=== PATIENT | female | born 1975 | race Caucasian/White ===

== ENCOUNTER 2019-07-19 10:45 | Outpatient (CLI) | payer OTHER, SELFPAY ==
--- NOTE | ~2019-07-19 | US_ITS ---
EXAMINATION: US thyroid DATE: 07/19/2019 11:14 INDICATION: Nontoxic single thyroid nodule. TECHNIQUE: Multiple ultrasound images of the thyroid were obtained. COMPARISON: Ultrasound 12/11/2017, 07/13/2013 FINDINGS: The right thyroid lobe measures 4.3 x 0.9 x 2.0 cm. The left thyroid lobe measures 4.6 x 2.3 x 2.2 c m. In the left thyroid lobe, there is a 3.1 cm mixed solid and cystic, hypoechoic, rgrwm-zkhx-rxoe n odule with smooth margin and punctate echogenic foci (TI-RADS TR4) that yielded benign pathology at f ine-needle aspiration on 02/01/2015, stable from 07/13/13. In the left thyroid lobe, there is an 8 mm solid, very hypoechoic, bopnr-sevh-rwez nodule with smooth margin without echogenic foci (TR4). In th e right thyroid lobe, there is a 9 mm solid, hypoechoic, qzbtl-fzfc-rqip nodule with smooth margin wi thout echogenic foci (TR4). In the right thyroid lobe, there is an 11 mm solid, hypoechoic, wider-martell n-tall nodule with ill-defined margin without echogenic foci (TR4) that yielded benign pathology at f ine needle aspiration on 02/01/15, stable from 07/13/13. IMPRESSION: 1. Stable multinodular goiter, likely not clinically significant. No follow-up is needed. Reviewed, dictated and finalized at location A.
== END 2019-07-19 10:46 | disposition home or self-care (01) ==
PROVIDERS: PCP Internal Medicine; Visit Provider Internal Medicine Endocrinology, Diabetes & Metabolism
DX: E04.2 Nontoxic multinodular goiter (principal); R79.89 Other specified abnormal findings of blood chemistry
CPT/HCPCS: 76536

== ENCOUNTER → 2019-08-30 12:05 | Outpatient (CLI) | payer OTHER, SELFPAY ==
--- NOTE | ~2019-08-30 | MM_ITS ---
EXAMINATION: MM screening [facility] BI w david HISTORY: Screening mammogram TECHNIQUE: Craniocaudal and mediolateral oblique 3-D tomosynthesis images were obtained and synthetic 2-D images were generated. CAD analysis was submitted and interpreted. COMPARISON: 07/27/2018, 07/21/2017, 06/06/2015 BREAST PARENCHYMAL COMPOSITION: The breasts are heterogeneously dense, which may obscure small masses . FINDINGS: RIGHT BREAST: There is no evidence of suspicious mass, calcification, or architectural distortion to suggest malignancy. There has been no significant interval change. LEFT BREAST: An asymmetry is present in the subareolar aspect of the slightly outer breast on the x ray examiner of aircraft niocaudal view. IMPRESSION: 1. Left breast asymmetry on the craniocaudal view. 2. Additional mammographic views and possible breast ultrasound are recommended. BI-RADS Category 0: Incomplete: Needs additional imaging evaluation. Reviewed, dictated and finalized at location A. IMPRESSION: 1. Left breast asymmetry on the craniocaudal view. 2. Additional mammographic views and possible breast ultrasound are recommended . BI-RADS Category 0: Incomplete: Needs additional imaging evaluation.
== END ==
PROVIDERS: Visit Provider Nurse Practitioner
DX: Z12.31 Encounter for screening mammogram for malignant neoplasm of breast (principal); R92.8 Other abnormal and inconclusive findings on diagnostic imaging of breast
CPT/HCPCS: 77063; 77067

== ENCOUNTER 2019-09-10 07:53 | Outpatient (CLI) | payer OTHER, SELFPAY ==
--- NOTE | ~2019-09-10 | MMUS_ITS ---
EXAMINATION: MM diagnostic mammo unilat LT, US breast LT limited HISTORY: Follow-up left breast asymmetry TECHNIQUE: Additional 3-D tomosynthesis images of the left breast were performed and synthetic 2-D im ages were generated. CAD analysis was submitted and interpreted. High resolution left breast ultrasou nd was performed. COMPARISON: Comparison to multiple prior studies sequentially, with oldest reviewed study dated 06/05. BREAST PARENCHYMAL COMPOSITION: The breasts are heterogenously dense, which may obscure small masses FINDINGS: MAMMOGRAPHIC FINDINGS: There is persistent asymmetry in the subareolar location of the left breast on CC view. No suspicious calcifications or architectural distortion. ULTRASOUND: Left breast ultrasound: In the periareolar location of the left breast there is a 9 mm cyst corresponding to the abnormality seen on mammogram. No suspicious masses to suggest malignancy. IMPRESSION: 1. No mammographic or sonographic evidence for malignancy in the left breast. 2. Routine yearly screening mammogram and regular clinical breast examination are recommended. BI-RADS Category 1: Negative Reviewed, dictated and finalized at location A. IMPRESSION: 1. No mammographic or sonographic evidence for malignancy in the left breast. 2. Routine yearly screening mammogram and regular clinical breast examination a re recommended. BI-RADS Category 1: Negative
== END 2019-09-10 07:54 ==
PROVIDERS: Visit Provider Obstetrics & Gynecology Gynecology
DX: R92.8 Other abnormal and inconclusive findings on diagnostic imaging of breast (principal)
CPT/HCPCS: 76642; 77065

== ENCOUNTER → 2020-09-25 07:30 | Outpatient (CLI) | payer OTHER, SELFPAY ==
--- NOTE | ~2020-09-25 | MM_ITS ---
EXAMINATION: MM screening [facility] BI w david HISTORY: Screening TECHNIQUE: Craniocaudal and mediolateral oblique 3-D tomosynthesis images were obtained and synthetic 2-D images were generated. CAD analysis was submitted and interpreted. COMPARISON: Comparison to multiple prior studies sequentially, with oldest reviewed study dated 06/05. BREAST PARENCHYMAL COMPOSITION: The breasts are heterogeneously dense, which may obscure small masses . FINDINGS: There is no evidence of suspicious mass, calcification, or architectural distortion to sugg est malignancy in either breast. There has been no suspicious interval change. IMPRESSION: 1. No mammographic evidence of malignancy. 2. Recommend routine screening mammography in one year. BI-RADS Category 1: Negative Reviewed, dictated and finalized at location A.
== END ==
PROVIDERS: Visit Provider Nurse Practitioner
DX: Z12.31 Encounter for screening mammogram for malignant neoplasm of breast (principal)
CPT/HCPCS: 77063; 77067

== ENCOUNTER 2020-12-04 03:02 | Day surgery (SDC) | payer OTHER, SELFPAY ==
[2020-11-27 10:32] VITALS: BMI 29.7
[2020-12-04] VITALS (12 sets, daily range): BP systolic 110–147; BP diastolic 50–82; PULSE 70–97; RESP 15–24; TEMP 36.7–36.8; O2SAT 75–100; BMI 29.9
--- NOTE | 2020-12-04 06:37 | P.PNAN_ITS ---
Anes - Initial Pre Proc Eval Procedure: Operation Date: 12/04/20 07:30 Proposed Procedures p Hysteroscopy with Adrianne Endometrial Ablation - Keira Goldman MD s Laparoscopic Bilateral Tubal Sterilization with Fallopian Rings - Keira Goldman MD Date/Time: 12/04/20 06:37 Surgeon: Keira Goldman MD Pre Op Diagnosis: menorrhaghia, elective sterilization Patient Data Age: 45 Gender: F Height: 1.6 m Weight: 76.8 kg Last Vital Signs Temp 36.7 C 12/04/20 06:27 Pulse 79 12/04/20 06:27 Resp 16 12/04/20 06:27 BP 110/50 L 12/04/20 06:27 Pulse Ox 98 12/04/20 06:27 Allergies Allergy/AdvReac Type Severity Reaction Status Date / Time No Known Allergies Allergy Verified 12/04/20 06:17 Home Medications Medication Instructions Recorded Confirmed Type ascorbate calcium (vitamin C) 500 500 mg PO DAILY 11/13/20 12/04/20 History mg tablet cholecalciferol (vitamin D3) 1,250 1,250 mcg PO WEEKLY 11/13/20 12/04/20 History mcg (50,000 unit) capsule Patient hx anesthesia problems: none Family hx anesthesia problems: none Results Review: All pre-operative results and documents have been reviewed as part of the pre-operative evaluation. [facility] Past Medical History Medical History Acquired hypothyroidism Allergies Herniated disc Thyroid nodule Surgical History Surgical History Delivery by section x2 2004 2008 Family History Family History Mother Patient's mother is in good health Father Kidney tumor TIA (transient ischemic attack) Hypertension Other Cerebrovascular accident Family history of migraine headaches Social History Social History Smoking status: Never smoker Second hand tobacco smoke exposure: No Alcohol intake: current Drinks per week: 7 Alcohol use details: BEER Substance use: never Substance use type: does not use Living arrangements: with family Additional living arrangements comments: , 2 kids and mother in law 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 Informed Consent: The patient's anesthetic plan and its attendant risks and benefits were discussed with the patient/family/POA. Questions were solicited and answers provided to the satisfaction of the patient/family/POA.
[2020-12-04] MEDS: LACTATED RINGERS 1,000 ML 30 ML IV CONT ×2 (06:47→08:19)
[2020-12-04] MEDS: KETOROLAC 15 MG/ML VIAL (*BKC) IV PUSH (06:48)
--- NOTE | 2020-12-04 07:14 | WPDHPUPDATE1 ---
History and Physical Update Update Date/Time: 12/04/20 07:14 History and Physical has been reviewed, including an updated exam of the patient. There are NO changes in the patient's condition. Risks, benefits, and alternatives have been discussed and questions answered. Patient agrees to proceed with procedure.
--- NOTE | 2020-12-04 07:14 | PM.HPGS ---
History of Present Illness History of Present Illness Consent: Risks, benefits, and alternatives have been discussed and questions answered. Patient agrees to proceed with procedure. Chief complaint: menorrhaghia, elective sterilization Narrative: Lola Burton is a 45 year old female with menorrhagia. She had hysteroscopy with polypectomy 2018 with improvement. Recent onset of heavy cycles again with clotting. EMB benign without polyps. Options reviewed and patient has decided to proceed with endometrial ablation. In addition, plan laparoscopic BTL for sterilization. Risks of infection, bleeding, uterine perforation, injury to internal organs (bowel, bladder, ureters, etc. reviewed), DVT, and general anesthesia reviewed. Agrees to proceed. Review of Systems Review of Systems: not repeated day of surgery; patient states no changes in status [facility] Past Medical History Medical History (Updated 12/04/20 @ 07:20 by Keria Goldman MD) Acquired hypothyroidism Allergies Herniated disc Thyroid nodule Surgical History Surgical History (Updated 12/04/20 @ 07:19 by Keira Goldman MD) Delivery by section x2 2004 2008 History of hysteroscopy Family History Family History Mother Patient's mother is in good health Father Kidney tumor TIA (transient ischemic attack) Hypertension Other Cerebrovascular accident Family history of migraine headaches Social History Social History Smoking status: Never smoker Second hand tobacco smoke exposure: No Alcohol intake: current Drinks per week: 7 Alcohol use details: BEER Substance use: never Substance use type: does not use Living arrangements: with family Additional living arrangements comments: , 2 kids and mother in law 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 Gender identity (if verbalized by the patient): Female Spiritual care concerns: No Meds Home Medications and Allergies Home Medications Medication Instructions Recorded Confirmed Type ascorbate calcium (vitamin C) 500 500 mg PO DAILY 11/13/20 12/04/20 History mg tablet cholecalciferol (vitamin D3) 1,250 1,250 mcg PO WEEKLY 11/13/20 12/04/20 History mcg (50,000 unit) capsule Allergies Allergy/AdvReac Type Severity Reaction Status Date / Time No Known Allergies Allergy Verified 12/04/20 06:17 Vital Signs Vital Signs - 24 hr 10/18/21 06:27 Temperature 98.1 F Pulse Rate 79 Respiratory Rate 16 Blood Pressure 110/50 L Pulse Oximetry 98 Exam Const: General: healthy appearing and alert Orientation/consciousness: patient oriented x3 Resp: Effort & Inspection: normal respiratory effort Auscultation: clear to auscultation bilaterally Cardio: Rate: regular rate Rhythm: regular rhythm GI: GI Palp: Yes Soft to palpation, No Tenderness to palpation present (GI) and No Palpable mass present : External Female Exam: normal external appearance Speculum Exam - Vagina: normal appearance of the vagina and normal vaginal discharge Speculum Exam - Cervix: normal appearance of the cervix Bimanual exam- vagina & uterus: uterine size normal and consistency normal Bimanual Exam- Adnexa, other: normal adnexae and No adnexal tenderness Neuro: General: patient oriented x3 Assessment and Plan Assessment and plan (1) Menorrhagia: Code(s): N92.0 - Excessive and frequent menstruation with regular cycle Status: Acute Assessment and Plan: plan is to proceed with hysteroscopy with endometrial ablation with Adrianne device (2) Encounter for sterilization: Code(s): Z30.2 - Encounter for sterilization Status: Acute Assessment and Plan: plan laparoscopic BTL with falope rings
--- NOTE | 2020-12-04 08:14 | P.OP_ITS ---
Procedure Note - Detailed Date of Procedure 12/04/20 Pre-op Diagnosis menorrhaghia, elective sterilization Post-op Diagnosis same Procedure Performed Endometrial ablation with Adrianne device; hysteroscopy; laparoscopic bilateral tubal ligation (right tube with Falope ring, left tube with bipolar cautery) Surgeon Keira Goldman MD Anesthesia general Findings The internal os is stenotic. The uterus sounds to 10cm and appears grossly normal. The tubes and ovaries appear grossly normal except for the left tube appears edematous in its distal half. There is a pedunculated fibroid approximately 2x3cm at the right fundus. Description of Procedure The patient was taken to the operating room and placed under anesthesia in the dorsal lithotomy position. She is prepped and draped in the usual sterile fashion. [place]mont speculum was placed in the vagina and the cervix is grasped on the anterior lip with a tenaculum. The uterus is attempted to be sounded and internal cervix noted to be stenotic. Os Finders are used and the cervix is able to be opened. The cervix is serially dilated with Hegar. The uterus is sounded to 10cm. The diagnostic hysteroscope was placed with no abnormalities noted. The hysteroscope was removed and the ablation device opened. The Adrianne device is placed and set at 6.5cm length. Cavity assessment passed on the 1st attempt. Treatment cycle lasted the full 2minutes. The Adrianne device is removed and the hysteroscope replaced with good ablation effect noted. The hysteroscope was removed, the acorn manipulator is placed, and the speculum was removed. Attention was turned to the abdomen. A vertical skin incision was made at the base of the umbilicus. The abdomen is tented and the Veress needle placed. Water drop test is normal. Opening patient pressure was 7mmHg. The pneumoperitoneum is obtained to a patient pressure of 15mmHg. The Veress needle was removed and the 5mm Optiview trocars placed. Intra-abdominal placement is confirmed with the laparoscoped. The patient is placed in Trendelenburg and the 8mm skin incision beat above the symphysis pubis in the midline. The 8mm disposable trocar is placed under direct visualization. The blunt probe was used to bring the tubes into the operative view. The Falope ring applicator is used to grasp the left tube and upon pulling the tube into the applicator the tube is transected. The cautery is requested. The ring applicator was used to grasp the right tube and a good loop of tube was pulled into the applicator and the ring was applied. The left tube was then cauterized in 3 separate locations until the amp meter is down. All instruments are removed and the pneumoperitoneum reduced. Skin incisions were closed using 4-0 nylon in interrupted fashion. Vaginal instruments are removed. The patient is awakened from anesthesia and taken to recovery in stable condition. Estimated Blood Loss 5 Drains No Packing No Pathology none sent Complications No immediate complications Condition stable Disposition PACU
[2020-12-04] MEDS: fentaNYL CITRATE INJ (*CRX) 100 MCG/2 ML VIAL 25 MCG IV PUSH ×6 (08:29→08:52)
[2020-12-04] MEDS: HYDROmorphone HCL INJ (*CRX) 1 MG/ML SYR 0.5 MG IV PUSH ×2 (08:56→09:05)
[2020-12-04] MEDS: oxyCODONE HCL (*CRX) 5 MG TAB IR PO (09:28)
--- NOTE | 2020-12-04 11:11 | SUR.PHASEII ---
spoke with Dr. Goldman about patiend bleeding at incision site, will be down to see patient
--- NOTE | 2020-12-04 11:29 | PM.GYNPNOP ---
RESTORATIVE COORDINATOR - A/P Postoperative Procedures: Procedures Operation Date: 12/04/20 07:30 Actual Procedure Side Surgeon p Hysteroscopy with Adrianne Endometrial Ablation Keira Goldman MD s Laparoscopic Bilateral Tubal Sterilization with Fallopian Rings Bilateral Keira Goldman MD Postoperative day: 0 Postoperative status: other (under 1% lidocaine 1 cc nylon suture removed and inc closed with 4-0 vicryl running suture. Observed and no further bleeding. Obs for 30 min then dc home.) Time Spent With Patient Time: Total time spent is greater than 50% in coordination of care (as documented) at patient's floor/unit and/or counseling patient: Time with patient: less than 15 minutes RESTORATIVE COORDINATOR- PN:Subj Post-Op Subjective Date/time seen: 12/04/20 11:29 Called by tin recovery worker with umbilical incision bleeding Exam GI: Inspection: other (incision with soaked 2x2 under dressing ) RESTORATIVE COORDINATOR - PN: Obj Data Vital Signs Vital Signs: Vital Signs - 24 hr 12/04/20 06:27 12/04/20 08:19 12/04/20 08:30 Temperature 98.1 F 98.3 F Pulse Rate 79 97 72 Respiratory Rate 16 24 H 16 Blood Pressure 110/50 L 137/72 143/76 H Pulse Oximetry 98 100 100 12/04/20 08:45 12/04/20 09:00 12/04/20 09:15 Temperature Pulse Rate 86 75 75 Respiratory Rate 20 16 15 Blood Pressure 136/82 128/77 119/79 Pulse Oximetry 100 95 75 L 12/04/20 09:20 12/04/20 09:50 12/04/20 10:20 Temperature Pulse Rate 73 70 76 Respiratory Rate 16 16 16 Blood Pressure 146/62 H 144/75 H 147/78 H Pulse Oximetry Intake/Output Intake/Output: Intake & Output 12/01/20 12/02/20 12/03/20 12/04/20 23:59 23:59 23:59 23:59 Intake Total 300 Output Total 300 Balance 0 Meds/Results Medications: Active Medications Generic Name Dose Route Start Last Admin Trade Name Freq PRN Reason Stop Dose Admin Fentanyl Citrate 25 mcg 12/04/20 06:48 12/04/20 08:52 Fentanyl Citrate Inj (*Crx) 100 Mcg/2 Ml Vial IV PUSH 25 mcg Q2M PRN Administration Pain Hydromorphone HCl 0.5 mg 12/04/20 08:53 12/04/20 09:05 Hydromorphone Hcl Inj (*Crx) 1 Mg/Ml Syr IV PUSH 0.5 mg Q5M PRN Administration Pain Lactated Ringer's 1,000 mls @ 30 mls/hr 12/01/20 18:05 12/04/20 08:19 Lr - Lactated Ringers Iv IV CONT Infused .Q24H NICOLAS Infusion Lactated Ringer's 1,000 mls @ 30 mls/hr 12/04/20 06:50 12/04/20 10:30 Lr - Lactated Ringers Iv IV CONT Infused .Q24H NICOLAS Infusion Ondansetron HCl 4 mg 12/04/20 06:48 Ondansetron Inj 4 Mg/2 Ml Vial IV PUSH ONCE PRN Nausea Oxycodone HCl 5 mg 12/04/20 06:48 12/04/20 09:28 Oxycodone Hcl (*Crx) 5 Mg Tab Ir PO 5 mg ONCE PRN Administration Pain
[2020-12-04] MEDS: ONDANSETRON HCL ODT 4 MG TABLET PO (11:40)
--- NOTE | 2020-12-04 11:40 | SUR.PHASEII ---
Dr. Goldman at bedside, sutured site
--- NOTE | 2020-12-04 12:04 | SUR.PHASEII ---
No bleeding noted after 30 minutes, patient ok to go home per Dr. Goldman
== END 2020-12-04 12:10 | disposition home or self-care (01) ==
PROVIDERS: PCP Internal Medicine; Visit Provider Obstetrics & Gynecology Gynecology
PROC: 0U5B8ZZ Destruction of Endometrium, Via Natural or Artificial Opening Endoscopic (ICD-10-PCS; CPT 58563; principal; 2020-12-04 07:30)
PROC: (CPT 58671; 2020-12-04 07:30)
DX: Z30.2 Encounter for sterilization (principal); N92.0 Excessive and frequent menstruation with regular cycle; N83.8 Other noninflammatory disorders of ovary, fallopian tube and broad ligament; E66.9 Obesity, unspecified; Z68.30 Body mass index [BMI] 30.0-30.9, adult; E03.9 Hypothyroidism, unspecified
CPT/HCPCS: 58563; 58671; 58670; A4264; A9270; J0330; J1100; J1170; J1885; J2250; J2405; J2704; J3010; J7030; J7120

== ENCOUNTER 2021-03-05 10:57 | Outpatient (CLI) | payer OTHER, SELFPAY ==
[2021-03-05 14:01] LABS: Free T4 Free Thyroxine 0.87 ng/mL (0.78-2.19); Vitamin D 25 Hydroxy 27.2 ng/mL
[2021-03-05 14:23] LABS: Thyroid Stimulating Hormone 0.886 uIU/mL (0.465-4.680)
[2021-03-08 05:17] LABS: Triiodothyronine T3 Free 3.3 pg/mL (2.3-4.2)
== END 2021-03-05 10:58 | disposition home or self-care (01) ==
LOC: ANHWCLAB 10:59
PROVIDERS: PCP Internal Medicine; Visit Provider Internal Medicine Endocrinology, Diabetes & Metabolism
DX: E04.1 Nontoxic single thyroid nodule (principal); E55.9 Vitamin D deficiency, unspecified
CPT/HCPCS: 36415; 82306; 84439; 84443; 84481

== ENCOUNTER 2021-03-12 08:18 | Outpatient (CLI) | payer OTHER, SELFPAY ==
--- NOTE | ~2021-03-12 | US_ITS ---
EXAMINATION: US thyroid EXAM DATE: 03/12/2021 08:41 INDICATION: E04.1 - Nontoxic single thyroid nodule. TECHNIQUE: Multiple grayscale and Doppler images of the thyroid were obtained (by a technologist who performed the scan) and subsequently reviewed. Individual nodules and recommendations may be reporte d in accordance with TI-RADS system as designated by the 2017 ACR White Paper TI-RADS committee. Comp ronnie is made to prior examination from 07/19/2019. FINDINGS: The right thyroid lobe measures 4.2 x 1.4 x 1.3 cm, the left measuring 5.8 x 2.4 x 2.7 cm. Mildly het erogeneous thyroid echogenicity. Exit field Left thyroid lobe has the dominant nodule measuring 3.6 x 2.3 x 2.7 cm, predominantly solid (2 points ), hypoechoic (2 points), wider than tall, smooth well defined margin, without echogenic foci, catego ry TR4 for this nodule. Previous dimensions obtained at 3.1 x 2.2 x 2.6 cm, but was reportedly previ ously biopsied with benign results. The other nodules are subcentimeter in size. IMPRESSION: Multinodular goiter. Return to clinical follow-up and if additional palpable abnormality develops a repeat ultrasound can be obtained. Reviewed, dictated and finalized at location A. NG MANAGER IMPRESSION: Multinodular goiter. Return to clinical follow-up and if additiona l palpable abnormality develops a repeat ultrasound can be obtained.
== END 2021-03-12 08:19 ==
PROVIDERS: PCP Internal Medicine; Visit Provider Internal Medicine Endocrinology, Diabetes & Metabolism
DX: E04.2 Nontoxic multinodular goiter (principal); E55.9 Vitamin D deficiency, unspecified
CPT/HCPCS: 76536

== ENCOUNTER → 2021-10-29 07:30 | Outpatient (CLI) | payer OTHER, SELFPAY ==
--- NOTE | ~2021-10-29 | MM_ITS ---
EXAMINATION: MM screening [facility] BI w david HISTORY: . TECHNIQUE: Craniocaudal and mediolateral oblique 3-D tomosynthesis images were obtained and synthetic 2-D images were generated. Bilateral rotated lateral CC views. CAD analysis was submitted and interp reted. COMPARISON: 09/25/2020 bilateral screening mammogram 09/06/2019 diagnostic left mammogram and limited left breast ultrasound 08/30/2019, 07/27/2018 bilateral screening mammogram examinations BREAST PARENCHYMAL COMPOSITION: FINDINGS: There is focal asymmetry in the posterior central right breast on MLO view. Diagnostic righ t mammogram is recommended, with ultrasound if required. Otherwise there is no evidence of suspicious mass, calcification, or architectural distortion to sugg est malignancy in either breast. There has been no other suspicious interval change. IMPRESSION: 1. Focal asymmetry in posterior central right breast on MLO view 2. Diagnostic right mammogram is recommended, with ultrasound if required BI-RADS Category 0: Incomplete: Needs additional imaging evaluation. Reviewed, dictated and finalized at location A.
== END ==
PROVIDERS: PCP Internal Medicine; Visit Provider Nurse Practitioner
DX: Z12.31 Encounter for screening mammogram for malignant neoplasm of breast (principal); R92.8 Other abnormal and inconclusive findings on diagnostic imaging of breast
CPT/HCPCS: 77063; 77067

== ENCOUNTER → 2021-11-19 09:15 | Outpatient (CLI) | payer OTHER, SELFPAY ==
--- NOTE | ~2021-11-19 | MM_ITS ---
EXAMINATION: MM diagnostic ed[facility] RT w david HISTORY: Right breast asymmetry on screening mammogram TECHNIQUE: Additional 3-D tomosynthesis images of the right breast were performed and synthetic 2-D i mages were generated. CAD analysis was submitted and interpreted. COMPARISON: 10/29/2021, 09/25/2020, 08/30/2019 FINDINGS: There is a return to baseline fibroglandular appearance with spot compression of the right breast in the area questioned on screening mammogram. IMPRESSION: 1. No mammographic evidence of malignancy. 2. Recommend routine screening mammography in one year. BI-RADS Category 1: Negative Reviewed, dictated and finalized at location A.
== END ==
PROVIDERS: PCP Internal Medicine; Visit Provider Obstetrics & Gynecology Gynecology
DX: R92.8 Other abnormal and inconclusive findings on diagnostic imaging of breast (principal)
CPT/HCPCS: 77061; 77065; G0279

== ENCOUNTER → 2022-07-08 11:32 | Outpatient (CLI) | payer OTHER, SELFPAY ==
--- NOTE | ~2022-07-08 | US_ITS ---
EXAMINATION: US thyroid DATE: 07/08/2022 11:49 INDICATION: Nontoxic multinodular goiter. TECHNIQUE: Multiple ultrasound images of the thyroid were obtained. COMPARISON: Ultrasound 03/12/2021, 12/11/2017 FINDINGS: The right thyroid lobe measures 4.5 x 1.4 x 1.1 cm. The left thyroid lobe measures 5.3 x 2.5 x 2.1 c m. In the right thyroid lobe, there is a 7 mm solid, hypoechoic, wider than tall nodule with smooth margin without echogenic foci (TI-RADS TR4). In the right thyroid lobe, there is a 9 mm solid, hypoec hoic, wider than tall nodule with ill-defined margin without echogenic foci (TR4). In the left thyroi d lobe, there is a 3.0 cm mixed solid and cystic, isoechoic, wider than tall nodule with smooth alice n without echogenic foci (TR2). IMPRESSION: 1. Thyroid nodules, stable from 12/11/2017, likely benign. No follow-up is needed. Reviewed, dictated and finalized at location A. IMPRESSION: 1. Thyroid nodules, stable from 12/11/2017, likely benign. No follow-up is need ed.
== END ==
PROVIDERS: PCP Internal Medicine; Visit Provider Clinical Nurse Specialist
DX: E04.2 Nontoxic multinodular goiter (principal)
CPT/HCPCS: 76536

== ENCOUNTER → 2022-10-14 08:47 | Outpatient (CLI) | payer OTHER, SELFPAY ==
--- NOTE | ~2022-10-14 | US_ITS ---
Pelvic ultrasound. Clinical History: Hypertrophy of uterus Technique: Realtime transabdominal and transvaginal scanning of the pelvis was performed. Color flow Doppler and Doppler spectral analysis were performed. Findings: The uterus is anteverted, and measures 9.4 x 5.2 x 7.2 cm. The endometrial stripe has a th ickness of 8 mm. Probable ill-defined intramural fibroid measuring up to 3.5 cm in diameter noted. Pr obable small posterior lower uterine segment partially subserosal fibroid measuring 1.8 cm. Neither ovary visualized. No adnexal mass seen. There is no evidence of free fluid in the cul de sac. Impression: Uterine fibroids, as detailed above. Reviewed, dictated and finalized at location M. Impression: Uterine fibroids, as detailed above.
== END ==
PROVIDERS: PCP Nurse Practitioner; Visit Provider Nurse Practitioner
DX: N85.2 Hypertrophy of uterus (principal); D25.9 Leiomyoma of uterus, unspecified
CPT/HCPCS: 76830

== ENCOUNTER → 2023-01-13 07:35 | Outpatient (CLI) | payer OTHER, SELFPAY ==
--- NOTE | ~2023-01-13 | MM_ITS ---
EXAMINATION: MM screening [facility] BI w david HISTORY: Screening mammogram TECHNIQUE: Craniocaudal and mediolateral oblique 3-D tomosynthesis images were obtained and synthetic 2-D images were generated. Bilateral rotated lateral CC views. CAD analysis was submitted and interp reted. COMPARISON: 11/19/2021 diagnostic right mammogram, reported negative , 09/25/2020 bilateral screening mammogram examinations 09/06/2019 diagnostic left mammogram and limited left breast ultrasound 08/30/2019 bilateral screening mammogram BREAST PARENCHYMAL COMPOSITION: The breasts are heterogeneously dense, which may obscure small masses . FINDINGS: There is no evidence of suspicious mass, calcification, or architectural distortion to sugg est malignancy in either breast. There has been no suspicious interval change. IMPRESSION: 1. No mammographic evidence of malignancy. 2. Recommend routine screening mammography in one year. BI-RADS Category 1: Negative Reviewed, dictated and finalized at location A. 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
== END ==
PROVIDERS: PCP Nurse Practitioner; Visit Provider Nurse Practitioner
DX: Z12.31 Encounter for screening mammogram for malignant neoplasm of breast (principal)
CPT/HCPCS: 77063; 77067

== ENCOUNTER 2023-01-20 00:30 | Day surgery (SDC) | payer OTHER, SELFPAY ==
[2023-01-06 13:30] VITALS: BMI 29.8
--- NOTE | 2023-01-17 10:56 | SUR.PREOP ---
Patient called regarding upcoming procedure. Reviewed preop instructions, appointment times, and procedure prep.
[2023-01-20 11:47] VITALS: BP 125/63; PULSE 86; RESP 18; TEMP 36.4; O2SAT 100
--- NOTE | 2023-01-20 11:56 | PM.HPGS ---
History of Present Illness History of Present Illness Consent: Risks, benefits, and alternatives have been discussed and questions answered. Patient agrees to proceed with procedure. Chief complaint: neoplasm screening Narrative: Lola Burton is a 47 year old female Presents for screening colonoscopy. Patient's current weight appetite and bowel movements are normal. Patient denies abdominal pain. She has had no bleeding. Family history noncontributory. Review of Systems Review of Systems: Review of systems noncontributory. [facility] Past Medical History Medical History Acquired hypothyroidism Allergies Herniated disc Multinodular goiter (nontoxic) Thyroid nodule Surgical History Surgical History Delivery by section 2004 History of hysteroscopy Family History Family History Mother Patient's mother is in good health Father Kidney tumor TIA (transient ischemic attack) Hypertension Other Cerebrovascular accident Family history of migraine headaches Social History Social History Smoking status: Never smoker Second hand tobacco smoke exposure: No Alcohol intake: current Drinks per week: 7 Alcohol use details: BEER Substance use: never Substance use type: does not use Lack of Transportation: No Lack of Food: Never True Current Housing: I Have Housing Concerned About Future Housing: No Difficulty Paying Gas/Electric Bills: No Difficulty Paying for Meds: No Currently Unemployed: No Education: Bachelor's Degree Difficulty w/ Childcare or Family Care: No Living arrangements: with family Additional living arrangements comments: , 2 kids and mother in law 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 Gender identity (if verbalized by the patient): Female Spiritual care concerns: No Meds Home Medications and Allergies Home Medications Medication Instructions Recorded Confirmed Type ergocalciferol (vitamin D2) 1,250 1,250 mcg PO 2XW 11/26/21 01/06/23 History mcg (50,000 unit) capsule Allergies Allergy/AdvReac Type Severity Reaction Status Date / Time No Known Allergies Allergy Verified 01/20/23 11:44 Vital Signs Vital Signs - 24 hr 01/20/23 11:47 Temperature 97.6 F Pulse Rate 86 Respiratory Rate 18 Blood Pressure 125/63 Pulse Oximetry 100 Oxygen Delivery Room Air Exam Narrative: Physical exam reveals patient to be alert. Vital signs stable. HEENT exam is unremarkable. Patient is anicteric. Lungs are clear to auscultation and percussion. Heart is without murmur or extra sounds. Abdomen bowel sounds are present soft nontender with no organomegaly. Digital external rectal exam normal. Assessment and Plan Assessment and plan (1) Encounter for screening colonoscopy: Code(s): Z12.11 - Encounter for screening for malignant neoplasm of colon Status: Acute Assessment and Plan: Patient presents for screening colonoscopy. She appears to be at average risk for colon polyps. Further recommendations may be given after endoscopy.
[2023-01-20] MEDS: LACTATED RINGERS 1,000 ML 150 ML IV CONT (12:02)
--- NOTE | 2023-01-20 13:04 | WPDANESEPPF ---
Anes - Initial Pre Proc Eval Procedure: Operation Date: 01/20/23 13:00 Proposed Procedures p Screening Colonoscopy - Zacarias Starks MD Date/Time: 01/20/23 13:04 Surgeon: Zacarias Starks MD Pre Op Diagnosis: neoplasm screening Patient Data Age: 47 Gender: F Height: 1.6 m Weight: 77.4 kg Last Vital Signs Temp 97.6 F 01/20/23 11:47 Pulse 86 01/20/23 11:47 Resp 18 01/20/23 11:47 BP 125/63 01/20/23 11:47 Pulse Ox 100 01/20/23 11:47 O2 Del Method Room Air 01/20/23 11:47 Allergies Allergy/AdvReac Type Severity Reaction Status Date / Time No Known Allergies Allergy Verified 01/20/23 11:44 Home Medications Medication Instructions Recorded Confirmed Type ergocalciferol (vitamin D2) 1,250 1,250 mcg PO 2XW 11/26/21 01/06/23 History mcg (50,000 unit) capsule Patient hx anesthesia problems: none Family hx anesthesia problems: none Results Review: All pre-operative results and documents have been reviewed as part of the pre-operative evaluation. [facility] Past Medical History Medical History Acquired hypothyroidism Allergies Herniated disc Multinodular goiter (nontoxic) Thyroid nodule Surgical History Surgical History Delivery by section x2 2004 2008 History of hysteroscopy Family History Family History Mother Patient's mother is in good health Father Kidney tumor TIA (transient ischemic attack) Hypertension Other Cerebrovascular accident Family history of migraine headaches Social History Social History Smoking status: Never smoker Second hand tobacco smoke exposure: No Alcohol intake: current Drinks per week: 7 Alcohol use details: BEER Substance use: never Substance use type: does not use Lack of Transportation: No Lack of Food: Never True Current Housing: I Have Housing Concerned About Future Housing: No Difficulty Paying Gas/Electric Bills: No Difficulty Paying for Meds: No Currently Unemployed: No Education: Bachelor's Degree Difficulty w/ Childcare or Family Care: No Living arrangements: with family Additional living arrangements comments: , 2 kids and mother in law 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 Informed Consent: The patient's anesthetic plan and its attendant risks and benefits were discussed with the patient/family/POA. Questions were solicited and answers provided to the satisfaction of the patient/family/POA.
[2023-01-20 13:24] VITALS: BP 133/80; PULSE 89; RESP 24; O2SAT 100
[2023-01-20 13:34] VITALS: BP 122/69; PULSE 82; RESP 20; O2SAT 97
[2023-01-20 13:44] VITALS: BP 133/76; PULSE 77; RESP 18; O2SAT 100
== END 2023-01-20 13:55 | disposition home or self-care (01) ==
PROVIDERS: PCP Internal Medicine; Visit Provider Internal Medicine Gastroenterology
PROC: 0DJD8ZZ Inspection of Lower Intestinal Tract, Via Natural or Artificial Opening Endoscopic (ICD-10-PCS; CPT 45378; principal; 2023-01-20 13:00)
DX: Z12.11 Encounter for screening for malignant neoplasm of colon (principal); D12.5 Benign neoplasm of sigmoid colon; K64.8 Other hemorrhoids; E03.9 Hypothyroidism, unspecified
CPT/HCPCS: 45385; 88305; J2001; J2704; J7120

== ENCOUNTER 2024-04-09 17:30 | Emergency (ER) | payer OTHER, SELFPAY ==
[2024-04-09 17:47] VITALS: BP 143/72; PULSE 100; RESP 16; TEMP 37.4; O2SAT 99
[2024-04-09 17:53] LABS: EDUAAPPEAR Clear; EDUABILI Negative (Negative); EDUABLOOD Trace (Negative); EDUACOLOR1 Yellow; EDUAGLUCOSE Negative (Negative); EDUAKETONE Negative (Negative); EDUALEUKO 2+ (Negative); EDUANITRATE Positive (Negative); EDUAPROTEIN Negative (Negative); EDUAUROBILI 0.2
--- NOTE | 2024-04-09 18:09 | ED_ITS ---
HPI - General Adult General Chief complaint: Urogenital-Female Stated complaint: urinary issue History of Present Illness HPI narrative: Lola Burton is a 48-year-old female who presents today with reports of having pain with urination, started to get right flank pain and fever over the past 2 days. Related Data Allergies Allergy/AdvReac Type Severity Reaction Status Date / Time No Known Allergies Allergy Verified 04/09/24 17:47 Review of Systems Review of Systems: All systems reviewed & are unremarkable except as noted in HPI and below PMFSH Past Medical History Medical History Multinodular goiter (nontoxic) Herniated disc Allergies Acquired hypothyroidism Thyroid nodule Surgical History Surgical History History of hysteroscopy Delivery by section x2 2004 2008 Family History Family History Mother Patient's mother is in good health Father Kidney tumor TIA (transient ischemic attack) Hypertension Other Cerebrovascular accident Family history of migraine headaches Social History Social History Smoking status: Never smoker Second hand tobacco smoke exposure: No Alcohol intake: current Drinks per week: 7 Alcohol use details: BEER Substance use: never Substance use type: does not use Lack of Transportation: No Lack of Food: Never True Current Housing: I Have Housing Concerned About Future Housing: No Difficulty Paying Gas/Electric Bills: No Difficulty Paying for Meds: No Currently Unemployed: No Education: Bachelor's Degree Difficulty w/ Childcare or Family Care: No Living arrangements: with family Additional living arrangements comments: , 2 kids and mother in law 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 HEAD: Normocephalic, atraumatic. EYES: PERRLA and EOMI. ENT: Nares clear, no rhinorrhea or epistaxis. Mucous membranes moist. Oropharynx without tonsillar hypertrophy exudate or other lesions. NECK: Supple. No adenopathy or masses. No carotid bruits or JVD CHEST: Clear to auscultation. No respiratory distress. No wheezes rales or rhonchi HEART: Regular rate and rhythm. No murmur heard. Normal peripheral pulses. ABDOMEN: soft / non tender + R CVA tenderness EXTREMITIES: Normal range of motion. No edema. SKIN: Warm, dry, no rash. NEURO: No focal deficits. Alert and oriented x3. PSYCH: Normal mood and affect. Course Course Level of Care: Express Care Visit Vital Signs Vital signs: Vital Signs Temperature 37.4 C 04/09/24 17:47 Pulse Rate 100 04/09/24 17:47 Respiratory Rate 16 04/09/24 17:47 Blood Pressure 143/72 H 04/09/24 17:47 Pulse Oximetry 99 04/09/24 17:47 Oxygen Delivery Room Air 04/09/24 17:47 Temperature 37.4 C 04/09/24 17:47 Pulse Rate 100 04/09/24 17:47 Respiratory Rate 16 04/09/24 17:47 Blood Pressure 143/72 H 04/09/24 17:47 Pulse Oximetry 99 04/09/24 17:47 Oxygen Delivery Room Air 04/09/24 17:47 Medical Decision Making [facility] Narrative Medical decision making narrative: 48 year-old patient presenting with suprapubic pain and urinary symptoms consist ent with UTI. Urine dip is obtained and positive for signs of infection. Urine culture sent. With pt reporting fevers and having + R CVA tenderness will cover pt for pyelonephritics. Patient started on Bactrim BID and strongly advised to return for any increasing or worsening pain, fevers or vomiting. They expressed understanding of instructions and is discharged in stable condition. Procedures: Pulse oximetry interpretation - not hypoxic. Review of medical records. DISPOSITION: Discharged home in stable condition. IMPRESSION: 1.Pyelonephritis Medical Records Medical records reviewed: Yes I reviewed the external patient's medical records. Vital Signs Vital Signs: Vital Signs Temperature 37.4 C 04/09/24 17:47 Pulse Rate 100 04/09/24 17:47 Respiratory Rate 16 04/09/24 17:47 Blood Pressure 143/72 H 04/09/24 17:47 Pulse Oximetry 99 04/09/24 17:47 Oxygen Delivery Room Air 04/09/24 17:47 Temperature 37.4 C 04/09/24 17:47 Pulse Rate 100 04/09/24 17:47 Respiratory Rate 16 04/09/24 17:47 Blood Pressure 143/72 H 04/09/24 17:47 Pulse Oximetry 99 04/09/24 17:47 Oxygen Delivery Room Air 04/09/24 17:47 Vitals reviewed by me Lab Data Lab results reviewed: Yes I reviewed the patient's lab results. Labs: Lab Results 04/09/24 04/09/24 Range/Units 17:45 17:51 Urine Color Pending POC Urine Color Yellow Urine Appearance Pending POC Urine Clarity Clear Urine pH Pending POC Urine pH 7.0 Ur Specific [place] Pending POC Ur Specif [place] 1.020 Urine Protein Pending POC Urine Protein Negative (Negative) Urine Glucose (UA) Pending POC Ur Glucose (UA) Negative (Negative) Urine Ketones Pending POC Urine Ketones Negative (Negative) Ur Blood (Man) Pending POC Urine Blood Trace (Negative) Urine Nitrate Pending POC Urine Nitrite Positive (Negative) Urine Bilirubin Pending POC Urine Bilirubin Negative (Negative) Urine Urobilinogen Pending POC Urine Urobilinogen 0.2 Ur Leukocyte Esterase Pending POC U Leukocyte Esteras 2+ (Negative) Discharge Plan Discharge Clinical Impression: Pyelonephritis Patient Disposition: Home, Self-Care Condition: Stable Instructions: Antibiotic Form Additional Instructions: Start the Bactrim twice daily for 10 days Push oral hydration Follow up with your PCP in 1 week You should be improving in the next 48 hours If you develop any worsening symptoms or concerns or unable to keep your antibiotics down proceed to the ER Patient Language: Libyan Prescriptions: New sulfamethoxazole-trimethoprim [Bactrim DS] 800-160 mg tablet 1 tablet PO Q12H Qty: 20 0RF Follow-up/Referrals: Narinder Briones DO [Primary Care Provider] - 1 Week Time of Disposition: 18:14
== END 2024-04-09 18:20 | disposition home or self-care (01) ==
PROVIDERS: Emergency Provider Nurse Practitioner Family; PCP Internal Medicine
DX: N12 Tubulo-interstitial nephritis, not specified as acute or chronic (principal)
CPT/HCPCS: 81003; 87086; 99213; G0463

== ENCOUNTER 2024-05-10 11:20 | Outpatient (CLI) | payer OTHER, SELFPAY ==
--- NOTE | ~2024-05-10 | US_ITS ---
EXAMINATION: US pelvic complete DATE: 05/10/2024 11:40 INDICATION: Other specified abnormal uterine and vaginal bleeding. TECHNIQUE: Multiple transabdominal sonographic images of the pelvis were obtained. COMPARISON: Ultrasound 10/14/2022 FINDINGS: The uterus measures 12.4 x 4.4 x 5.9 cm. There is no free fluid in the pelvis. The endometrial comple x measures 9 mm in thickness. The right ovary measures 2.6 x 2.5 x 2.8 cm. The left ovary measures 3. 1 x 2.9 x 3.4 cm. There is normal vascular flow in the ovaries. IMPRESSION: 1. Normal pelvis. Reviewed, dictated and finalized at location A. IMPRESSION: 1. Normal pelvis.
== END 2024-05-10 11:21 | disposition home or self-care (01) ==
PROVIDERS: PCP Internal Medicine; Visit Provider Obstetrics & Gynecology Gynecology
DX: N93.8 Other specified abnormal uterine and vaginal bleeding (principal)
CPT/HCPCS: 76856

== ENCOUNTER 2024-06-07 12:26 | Outpatient (CLI) | payer OTHER, SELFPAY ==
--- NOTE | ~2024-06-07 | MM_ITS ---
EXAMINATION: MM screening [facility] BI w david HISTORY: Screening TECHNIQUE: Craniocaudal and mediolateral oblique 3-D tomosynthesis images were obtained and synthetic 2-D images were generated. CAD analysis was submitted and interpreted. COMPARISON: 01/13/2023 and dating back to 08/30/2019 BREAST PARENCHYMAL COMPOSITION: The breasts are heterogeneously dense, which may obscure small masses . FINDINGS: Punctate calcifications are detected bilaterally, stable and benign in appearance. Stable parenchymal pattern without suspicious microcalcifications, architectural distortion or signif icant asymmetry. IMPRESSION: 1. No mammographic/tomographic evidence of malignancy. 2. Recommend routine screening mammography in one year. BI-RADS Category 2: Benign finding(s). Reviewed, dictated and finalized at location A.
== END 2024-06-07 12:27 | disposition home or self-care (01) ==
LOC: MICIMG 12:26
PROVIDERS: PCP Internal Medicine; Visit Provider Nurse Practitioner
DX: Z12.31 Encounter for screening mammogram for malignant neoplasm of breast (principal)
CPT/HCPCS: 77063; 77067

== ENCOUNTER 2024-07-05 00:13 | Day surgery (SDC) | payer OTHER, SELFPAY ==
[2024-06-28 12:01] VITALS: BMI 31.1
--- NOTE | 2024-06-28 12:10 | PC.NURSE ---
Report to the Outpatient Waiting Room, entrance under the green pavilion located off [facility], at time _0615_ on date _[id number]_. Planned Procedure Time: _0815_. Time changes happen often and if your time is changed the preop area will call you the afternoon before. - You and your visitor will be asked to self-screen and do not enter if you have any COVID symptoms. Please call surgeon if you need to reschedule. - A mask is optional within the hospital at this time. Patients may have clear liquids (water, carbonated beverages, clear teas, apple juice) until 3 hours prior to surgery with a maximum of 20 ounces. - No food from midnight until time of surgery and no smoking, or chewing tobacco (or any form of nicotine). No chewing gum, candy or mints. Take only the following medications with a SIP of water on the morning of surgery: __None DO NOT STOP ANY OF YOUR OTHER PRESCRIPTION MEDICATIONS PRIOR TO SURGERY EXCEPT THE FOLLOWING Hold all vitamins and supplements for 3 days per anesthesiologist. Medications to discontinue per physician Date to take last dose Please no make-up, nail pashto, hairspray, perfume, deodorant, or body powder the day of surgery. No jewelry (including any body piercings) or valuables the day of surgery, leave them at home. Please take a shower or bath the night before, or the morning of, surgery with an antibacterial soap. Wear comfortable, loose fitting clothing. - Jewelry must be removed prior to entering the operating room. Rings and piercings that are not removed may be cut off. - The hospital will not accept responsibility for valuables. - Please leave all valuables, including medications, at home the day of surgery. If you are going home after surgery, a licensed regional intermodal truck driver must drive you home. - NO public transportation without another adult if you receive anesthesia. - We recommend that an adult stay with you for 24 hours following discharge. - We also recommend that you do not drive, make important decision, drink alcoholic beverages, or take any drugs that were not prescribed by your health care provider for at least 24 hours after your discharge time. Follow any additional instructions given to you from your surgeon. Telephone instructions given to __Liz___and asked if any additional questions and then verbalized understanding. Patient advised to call surgeon office or pre surgery nurse liaison [phone] if any additional questions.
--- OUTSIDE RECORDS SUMMARY | 2024-07-05 00:15 | XMS_ITS | Clinical Summary ---
Author Organization [facility] Address [address] [address] [place] [phone] Phone Care Team Providers Care Hand Etcher Helper Name Role Phone Unavailable Primary Care Provider Unavailabl e Allergies Active Allergy Reactions Criticality Noted Date Comments Hydrocodone Dizziness Low 07/03/2013 Medications traMADol (ULTRAM) 50 mg tablet Take 1-2 Tabs by mouth every 6 hours as needed for Pain. 20 Tab None 07/03/2013 Active Social History Tobacco Use Types Packs/Day Years Used Date Smoking Tobacco: Never Alcohol Use Standard Drinks/Week Comments No 0 (1 standard drink = 0.6 oz pur e alcohol) Comments No Sex and Gender Information Value Date Recorded Sex Assigned at Not on file Legal Sex Female 2:47 PM CDT Gender Identity Not on file Sexual Orientation Not on file Last Filed Vital Signs Vital Sign Reading Time Taken Comments Blood Pressure 119/46 07/03/2013 5:56 PM CDT Pulse - - Temperature 36.9 C (98.5 F) 07/03/2013 5:56 PM CDT Respiratory Rate 16 07/03/2013 5:56 PM CDT Oxygen Saturation 100% 07/03/2013 5:56 PM CDT Inhaled Oxygen Concentration - - Weight 65.3 kg (144 lb) 07/03/2013 2:50 PM CDT Height 157.5 cm (5' 2 ) 07/03/2013 2:50 PM CDT Body Mass Index 26.34 07/03/2013 2:50 PM CDT Plan of Treatment Health Maintenance Due Date Last Done Comments DTAP/TDAP/TD VACCINES (1 - Tdap) 1996 HEPATITIS B VACCINES (1 of 3 - 19+ 3-dose series) 03/1996 HPV/Cotest (21-29) 1998 CERVICAL CANCER SCREENING 06/19/2007 HPV/Cotest (30-65) 06/19/2007 PAP SMEAR 06/19/2007 BREAST CANCER SCREENING 2017 COLORECTAL SCREENING 2022 Colorectal Cancer Screening 2022 FIT-DNA Q 3 years 2022 FIT/FOBT Q 1 year 2022 Flex Sig/CT Colonography Q 5 years 2022 INFLUENZA VACCINE (#1) 2023
--- OUTSIDE RECORDS SUMMARY | 2024-07-05 00:15 | XMS_ITS | Clinical Summary ---
Author Organization [facility] [employer] Address [address] [place] [address] Care Team Providers Care Cut Roll Machine Operator Name Role Phone Narinder Briones DO Primary Care Provider Source Comments [facility] [employer],non-owned Affiliates and Associated Physician Practices is amultiple site organization consisting of ambulatory clinics and hospital sitesin [place], [place], [place] and [place]. This disclosure is being madepursuant to the Care Everywhere program and may not contain all information available regarding this patient. Last updated 17.[employer] Allergies No known active allergies Medications * Be aware that medications may not be up to date on this document. Alwaysverify current medications with the patient. vitamin D, ergocalciferol , (Drisdol) 1.25 MG (97570 UT) capsule Take 1 (one) capsule by mouth every 7 days 3 Active semaglutide (Wegovy) 0.25 MG/0.5ML penIndications :Obesity (BMI 30.0-34.9) Inject 0.25 mg subcutaneously every 7 days 3 mL 4 Active phentermine-to piramate 24hr (Qsymia) 3.75-23 MG capsuleIndicat ions:Obesity (BMI 30.0-34.9) Take 1 (one) capsule by mouth once daily Please start on lower dose for 14 days then increase to higher dose 14 capsule 4 Active phentermine-to piramate 24hr (Qsymia) 7.5-46 MG capsuleIndicat ions:Obesity (BMI 30.0-34.9) Take 1 (one) capsule by mouth once daily Please start on lower dose for 14 days then increase to higher dose 30 capsule 3 Active Social History Tobacco Use Types Packs/Day Years Used Date Smoking Tobacco: Never Passive Smoke Exposure: Never Smokeless Tobacco: Never Tobacco Cessation:Counseling Given: Not Answered Alcohol Use Standard Drinks/Week Comments Yes 0 (1 standard drink = 0.6 oz pur e alcohol) Comments No Sex and Gender Information Value Date Recorded Sex Assigned at Female 08/26/2022 6:42 PM CDT Legal Sex Female 12:28 PM CDT Gender Identity Female 08/26/2022 6:42 PM CDT Sexual Orientation Not on file Last Filed Vital Signs Vital Sign Reading Time Taken Comments Blood Pressure 120/70 12/02/2023 8:59 AM CDT Pulse 83 12/02/2023 8:59 AM CDT Temperature - - Respiratory Rate - - Oxygen Saturation 98% 12/02/2023 8:59 AM CDT Inhaled Oxygen Concentration - - Weight 84.4 kg (186 lb) 12/02/2023 8:59 AM CDT Height 160 cm (5' 3 ) 12/02/2023 8:59 AM CDT Body Mass Index 32.95 12/02/2023 8:59 AM CDT Plan of Treatment Health Maintenance Due Date Last Done Comments COLOGUARD (AGES 45-75) - COL ON CA SCREENING 1977 COLON MONITORING 1977 COLONOSCOPY - COLON CA SCREENING 1977 CT COLONOGRAPHY - COLON CA SCREENING 1977 Colorectal Cancer Screening 1977 FIT - COLON CA SCREENING 1977 FLEX SIG - COLON CA SCREENING 1977 LIPID TESTING 1977 MAMMOGRAM 1977 PAP SMEAR 1977 HIV SCREENING 1992 HEPATITIS C SCREENING 06/14/1995 DTAP/TDAP/TD VACCINES (1 - Tdap) 1996 HEPATITIS B VACCINE (1 of 3 - 19+ 3-dose series) 1996 SCREENING FOR DIABETES 08/29/2023 COVID-19 VACCINE ( - 2023-2 5 season) 2023 DEPRESSION SCREENING 02/18/2024 INFLUENZA VACCINE (Season Ended) 2024 ZOSTER VACCINE (1 of 2) 06/19/2027 HIB VACCINE Aged Out No longer eligi ble based on patient's age to complete this topic HPV VACCINE Aged Out No longer eligi ble based on patient's age to complete this topic MENINGOCOCCAL (Group B) VACC INE SHARED DECISION-MAKING Aged Out No longer eligibl e based on patient's age to complete this topic MENINGOCOCCAL GROUPS A/C/Y/W VACCINE Aged Out No longer eligible b ased on patient's age to complete this topic PNEUMOCOCCAL VACCINE Aged Out No long er eligible based on patient's age to complete this topic Insurance AETNA AETNA SELF PAY NO INSURANCE Member Subscriber Plan / Payer (Ef fective for All Dates) Name:German Burton Member ID:Not on file Relation to Subscriber:Not on file Name:GERMAN BURTON Subscriber ID:Not on file Address: [address] [place] [phone] Payer ID:Not on file Group ID:Not on file Type:Self Pay Address: [place], [place] Care Teams Cut Roll Machine Operator Relationship Specialty Start Date End Date Narinder Briones DO [address] [place] [phone] PCP - General Internal Medicine 09/08/23
[2024-07-05 07:00] VITALS: BP 128/59; PULSE 74; RESP 16; TEMP 36.6; O2SAT 99; BMI 33.0
[2024-07-05] MEDS: LACTATED RINGERS 1,000 ML 30 ML IV CONT (07:10)
[2024-07-05] MEDS: ACETAMINOPHEN 500 MG TABLET 1000 MG PO (07:15)
--- NOTE | 2024-07-05 07:20 | WPDHPUPDATE1 ---
History and Physical Update Update Date/Time: 07/05/24 07:20 History and Physical has been reviewed, including an updated exam of the patient. There are NO changes in the patient's condition. Risks, benefits, and alternatives have been discussed and questions answered. Patient agrees to proceed with procedure.
--- NOTE | 2024-07-05 07:20 | PM.HPGS ---
History of Present Illness History of Present Illness Consent: Risks, benefits, and alternatives have been discussed and questions answered. Patient agrees to proceed with procedure. Chief complaint: menorhagia Narrative: Lola Burton is a 49 year old female with increased flow during cycles. Cycles remain every 28 days however the patient had change in her cycle and large. Cycles have become very heavy with clots. Patient with known fibroids. Plan is to proceed with D&C hysteroscopy. Patient with a prior endometrial ablation so she was given Cytotec to with entry. Risks of infection, bleeding perforation, and inability to enter the cavity were reviewed. Patient voices understanding and agrees to proceed. Review of Systems Review of Systems: not repeated day of surgery; patient states no changes in status PMFSH Past Medical History Medical History (Updated 05/04/24 @ 11:23 by Regina Delvalle NP) Multinodular goiter (nontoxic) Herniated disc Allergies Acquired hypothyroidism Thyroid nodule Surgical History Surgical History (Updated 07/05/24 @ 07:23 by Keira Goldman MD) History of bilateral tubal ligation History of endometrial ablation History of hysteroscopy Delivery by section x2 2004 2008 Family History Family History Mother Patient's mother is in good health Father Kidney tumor TIA (transient ischemic attack) Hypertension Other Cerebrovascular accident Family history of migraine headaches Social History Social History Smoking status: Never smoker Second hand tobacco smoke exposure: No Alcohol intake: current Drinks per week: 7 Alcohol use details: BEER Substance use: never Substance use type: does not use Lack of Transportation: No Lack of Food: Never True Current Housing: I Have Housing Concerned About Future Housing: No Difficulty Paying Gas/Electric Bills: No Difficulty Paying for Meds: No Currently Unemployed: No Education: Bachelor's Degree Difficulty w/ Childcare or Family Care: No Living arrangements: with family Additional living arrangements comments: , 2 kids and mother in law 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 Gender identity (if verbalized by the patient): Female Spiritual care concerns: No Meds Home Medications and Allergies Home Medications Medication Instructions Recorded Confirmed Type No Home Medications 06/28/24 06/28/24 History Allergies Allergy/AdvReac Type Severity Reaction Status Date / Time No Known Allergies Allergy Verified 06/28/24 12:00 Exam Const: General: healthy appearing and alert Orientation/consciousness: patient oriented x3 Resp: Effort & Inspection: normal respiratory effort : External Female Exam: normal external appearance Speculum Exam - Vagina: normal appearance of the vagina and normal vaginal discharge Speculum Exam - Cervix: normal appearance of the cervix Bimanual exam- vagina & uterus: consistency normal and enlarged Bimanual Exam- Adnexa, other: normal adnexae and No adnexal tenderness Neuro: General: patient oriented x3 Assessment and Plan Assessment and plan (1) Menorrhagia: Code(s): N92.0 - Excessive and frequent menstruation with regular cycle Status: Acute Assessment and Plan: Plan to proceed with D&C hysteroscopy
--- NOTE | 2024-07-05 07:31 | WPDHPUPDATE1 ---
History and Physical Update Update Date/Time: 07/05/24 07:31 History and Physical has been reviewed, including an updated exam of the patient. There are NO changes in the patient's condition. Risks, benefits, and alternatives have been discussed and questions answered. Patient agrees to proceed with procedure.
--- NOTE | 2024-07-05 07:40 | P.PNAN_ITS ---
Anes - Initial Pre Proc Eval Procedure: Operation Date: 07/05/24 08:15 Proposed Procedures p Hysteroscopy, Dilation and Curettage - Keira Goldman MD Date/Time: 07/05/24 07:40 Surgeon: Keira Goldman MD Pre Op Diagnosis: menorhagia Patient Data Age: 49 Gender: F Height: 1.57 m Weight: 77.3 kg Allergies Allergy/AdvReac Type Severity Reaction Status Date / Time No Known Allergies Allergy Verified 07/05/24 07:38 Home Medications Medication Instructions Recorded Confirmed Type No Home Medications 06/28/24 06/28/24 History Patient hx anesthesia problems: none Family hx anesthesia problems: none Results Review: All pre-operative results and documents have been reviewed as part of the pre- operative evaluation. [facility] Past Medical History Medical History Multinodular goiter (nontoxic) Herniated disc Allergies Acquired hypothyroidism Thyroid nodule Surgical History Surgical History History of bilateral tubal ligation History of endometrial ablation History of hysteroscopy Delivery by section x2 2004 2008 Family History Family History Mother Patient's mother is in good health Father Kidney tumor TIA (transient ischemic attack) Hypertension Other Cerebrovascular accident Family history of migraine headaches Social History Social History Smoking status: Never smoker Second hand tobacco smoke exposure: No Alcohol intake: current Drinks per week: 7 Alcohol use details: BEER Substance use: never Substance use type: does not use Lack of Transportation: No Lack of Food: Never True Current Housing: I Have Housing Concerned About Future Housing: No Difficulty Paying Gas/Electric Bills: No Difficulty Paying for Meds: No Currently Unemployed: No Education: Bachelor's Degree Difficulty w/ Childcare or Family Care: No Living arrangements: with family Additional living arrangements comments: , 2 kids and mother in law 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 Informed Consent: The patient's anesthetic plan and its attendant risks and benefits were discussed with the patient/family/POA. Questions were solicited and answers provided to the satisfaction of the patient/family/POA.
[2024-07-05 07:56] LABS: BEDSIDEPREGUCG Negative (Negative)
[2024-07-05] MEDS: KETOROLAC 30 MG/ML VIAL (*BKC) IV PUSH (08:14)
--- NOTE | 2024-07-05 09:05 | SUR.OPER ---
Fluid deficit on aveta noted to be 760, due to hole in saline bag. Saline bag was replaced. Per Dr. Goldman fluid deficit was 200mL
[2024-07-05 09:07] VITALS: BP 161/90; PULSE 87; RESP 18; O2SAT 95
--- NOTE | 2024-07-05 09:13 | P.OP_ITS ---
Procedure Note - Detailed Date of Procedure 07/05/24 Pre-op Diagnosis menorhagia Post-op Diagnosis Same (+fibroid) Procedure Performed Hysteroscopic myomectomy with D&C Surgeon Keira Goldman MD Anesthesia MAC Findings Uterus sounds to 10cm. There is a large fibroid arising from the left sidewall. The remainder of the endometrium appears grossly normal and does not appear ablated. Description of Procedure The patient was taken to the operating room and placed under anesthesia in the dorsal lithotomy position. She was prepped and draped in the usual sterile fashion. Felton speculum was placed in the vagina and the cervix was grasped on the anterior lip with a tenaculum. The uterus is sounded to 10cm. The diagnostic hysteroscope was placed with the above-stated findings. The flex Aveta resection device is placed and under direct visualization the fibroid is resected until it was flat with the endometrium. After waiting for several moments the fibroid pushed into the uterus and again required additional resection. This happened 3 times. The fibroid eventually was removed in its entirety and the endometrium remained flat. During the case the waste bag had to be changed. After this the fluid deficit changed from 180 to 300 quickly. The staff noted that the bag was leaking. By the time a leak was fixed there was an 800 fluid deficit. We discussed and decided to assume a fluid deficit of 200. Once the fibroid was removed the hysteroscope was removed. The sharp curette was used to curette the endometrium until a good uterine cry was noted in all areas. Minimal material was obtained. All instruments were then removed. Sponge, needle, and instrument counts are correct per the OR staff. The patient was awakened from anesthesia and taken to recovery in stable condition. Estimated Blood Loss 100 Drains No Packing No Pathology Yes (Endometrial shavings and curettings) Complications No immediate complications Condition Stable Disposition PACU
[2024-07-05 09:15] VITALS: BP 153/83; PULSE 79; RESP 17; O2SAT 96
[2024-07-05] MEDS: fentaNYL CITRATE INJ (*CRX) 100 MCG/2 ML VIAL 25 MCG IV PUSH ×4 (09:20→09:35)
[2024-07-05 09:30] VITALS: BP 148/81; PULSE 64; RESP 17; O2SAT 95
[2024-07-05] MEDS: oxyCODONE HCL (*CRX) 5 MG TAB IR PO (09:55)
[2024-07-05 10:00] VITALS: BP 137/69; PULSE 65; RESP 16
== END 2024-07-05 10:14 | disposition home or self-care (01) ==
PROVIDERS: PCP Internal Medicine; Visit Provider Obstetrics & Gynecology Gynecology
PROC: 0U5B8ZZ Destruction of Endometrium, Via Natural or Artificial Opening Endoscopic (ICD-10-PCS; CPT 58563; principal; 2024-07-05 08:15)
DX: D25.9 Leiomyoma of uterus, unspecified (principal); E03.9 Hypothyroidism, unspecified; Z98.890 Other specified postprocedural states; Z98.51 Tubal ligation status; Z98.891 History of uterine scar from previous surgery; Z82.49 Family history of ischemic heart disease and other diseases of the circulatory system
CPT/HCPCS: 58561; 88305; A9270; J1885; J2003; J2250; J2704; J3010; J7120